=== PATIENT | male | born 1975 | race Hispanic/Latino ===

== ENCOUNTER 2017-05-01 20:45 | Emergency (ER) | payer OTHER ==
[~2017-05-01] VITALS: Ht 177.8 cm; Wt 81.8 kg
[2017-05-01 21:25] VITALS: BP 150/82; PULSE 112; RESP 22; O2SAT 100
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
[2017-05-01] MEDS ORDERED: HYDROcodone-APAP 5-325 mg Tablet PO ONE (23:20)
[2017-05-02] MEDS ORDERED: TdaP Vaccine 0.5 mL Inj IM ONE (00:10)
[2017-05-02 01:24] VITALS: BP 139/79; PULSE 97; RESP 22; O2SAT 100
== END 2017-05-02 00:49 | disposition home or self-care (01) ==
LOC: SED 20:45
DX: T23.311A Burn of third degree of right thumb (nail), initial encounter (principal); T23.261A Burn of second degree of back of right hand, initial encounter; T22.191A Burn of first degree of multiple sites of right shoulder and upper limb, except wrist and hand, initial encounter; T31.0 Burns involving less than 10% of body surface; W40.9XXA Explosion of unspecified explosive materials, initial encounter; Y93.89 Activity, other specified; Y92.69 Other specified industrial and construction area as the place of occurrence of the external cause; Y99.0 Civilian activity done for income or pay; Z23 Encounter for immunization